=== PATIENT | male | born 1990 | race African-American/Black ===

== ENCOUNTER 2021-11-01 13:50 | Emergency (ER) | payer MEDICAID ==
[~2021-11-01] VITALS: Ht 182.9 cm; Wt 82.0 kg
[2021-11-01] MEDS ORDERED: DOXY-326 MT (16:12)
[2021-11-01] MEDS ORDERED: CEFTRIAXONE SODIUM 500 MG/VIAL IM ONE (16:15)
[2021-11-01] MEDS ORDERED: DOXYCYCLINE HYCLATE 100MG CAPSULE PO ONE (16:15)
[2021-11-01 17:04] VITALS: BP 115/72
== END 2021-11-01 17:06 | disposition home or self-care (01) ==
LOC: ER 13:50
DX: Z20.2 Contact with and (suspected) exposure to infections with a predominantly sexual mode of transmission (principal); Z88.3 Allergy status to other anti-infective agents
CPT/HCPCS: 96372; 99283; J0696